=== PATIENT | female | born 1975 | race Caucasian/White ===

== ENCOUNTER → 2017-08-10 | Outpatient (CLI) | payer BC ==
[~2017-08-10] MED LIST: ATEN50TA; LISI-593; PRD5T PO; RNT150T PO; SIMV40TA2; SITA50TA; ZOLP10TA
--- NOTE | 2017-08-10 09:10 | Diagnostic Imaging Report ---
Bilateral screening mammogram 2D views with tomosynthesis The current study was also evaluated with a Computer Aided Detection (CAD) system. INDICATION: Screening. No current complaints stated on the questionnaire. COMPARISON: 03/28/2016. FINDINGS: The breasts are composed of scattered fibroglandular densities. There are elongated asymmetries seen in the upper aspect of the right breast which appear to project on the CC projection in the lateral and central aspects. These are persistent on the tomographic evaluation but could be related to parenchyma with no definitive underlying mass. The left breast demonstrates no mass, architectural distortion, or suspicious calcification. IMPRESSION: Focal compression views and ultrasound evaluation for upper right breast focal asymmetries is recommended. ACR BI-RADS Category 0: Incomplete. (Needs additional imaging evaluation). Result letter will be mailed to the patient. Note: At least 10% of breast cancer is not imaged by mammography. Dictated by: Dictated on workstation # [id number]
== END ==
LOC: RAD 07:20
PROVIDERS: ATTEND Family Medicine
DX: Z12.31 Encounter for screening mammogram for malignant neoplasm of breast (principal); N64.89 Other specified disorders of breast
CPT/HCPCS: 77067

== ENCOUNTER → 2017-08-23 | Outpatient (CLI) | payer BC ==
--- NOTE | 2017-08-23 08:19 | Diagnostic Imaging Report ---
Right breast diagnostic mammogram with tomography. CAD is utilized. The current study was also evaluated with a Computer Aided Detection (CAD) system. COMPARISON: 08/10/17. INDICATION: Asymmetry seen on screening exam on the cc projection centrally and laterally and along the upper aspect of the MLO view. FINDINGS: Focal compression views at the site of asymmetries are performed with no definite underlying lesion seen. IMPRESSION: Findings are in favor of summation artifact of parenchyma with no definite underlying mass. Ultrasound evaluation pending. BI-RADS 0. ACR BI-RADS Category 0: Incomplete. (Needs additional imaging evaluation). Result letter will be mailed to the patient. Note: At least 10% of breast cancer is not imaged by mammography. Dictated by: Dictated on workstation # [id number]
--- NOTE | 2017-08-23 08:55 | Diagnostic Imaging Report ---
Right breast ultrasound. INDICATION: Right breast asymmetry. FINDINGS: Four quadrants and retroareolar region of the right breast is scanned with no underlying abnormality seen. IMPRESSION: Negative study. The mammographic asymmetries are probably summation effect of parenchyma. Annual screening mammogram is recommended. ACR BI-RADS Category 1: Negative. Result letter will be mailed to the patient. Note: At least 10% of breast cancer is not imaged by mammography. Dictated by: Dictated on workstation # [id number]
== END ==
LOC: RAD 07:34
PROVIDERS: ATTEND Family Medicine
DX: N64.89 Other specified disorders of breast (principal)
CPT/HCPCS: 76641

== ENCOUNTER → 2018-03-09 | Outpatient (CLI) | payer BC ==
--- NOTE | 2018-03-09 14:37 | Diagnostic Imaging Report ---
EXAMINATION: Magnetic resonance imaging of the right knee without intravenous contrast DATE: 03/09/2018. COMPARISON: None. INDICATION: A 43-year-old female, right knee injury in the fall of 2017 with persistent right knee pain. TECHNIQUE: Multiplanar, multisequence non contrast enhanced MR imaging was accomplished. FINDINGS: MENISCI: There is increased signal in the posterior horn of the medial meniscus which does not contact an articular surface and does not meet strict MRI criteria for tear. There is no parameniscal cyst. The lateral meniscus is intact. LIGAMENTS AND TENDONS: The anterior and posterior cruciate ligaments are intact. The medial collateral ligament is intact. The iliotibial band, mid third lateral capsular ligament, fibular collateral ligament, biceps femoris tendon and conjoined tendon are intact. The quadriceps tendon and patella ligament are intact. JOINT: The medial patellar facet. There is approximately 25% thinning of the cartilage of the medial patellar facet. There are fissures of the median patellar ridge and lateral patellar facet. There is very minimal degenerative related underlying subchondral edema. The medial and lateral compartment cartilage is grossly intact. There is no identified knee joint effusion, prominent synovitis, or intra-articular body. BONE: The additional bone marrow signal is unremarkable. Specifically, negative for fracture, osteomyelitis, osteonecrosis, or marrow replacing process. BURSAE AND SOFT TISSUES: There is no Lai's cyst. There is a ganglion cyst near the posterior joint capsule measuring 6 x 8 x 8 mm in size. IMPRESSION: 1. Signal in the posterior horn of the medial meniscus not meeting strict MRI criteria for tear. 2. Intact lateral meniscus. 3. Intact anterior and posterior crucial ligaments. Additional ligaments and tendons are intact. 4. Moderate patellofemoral compartment osteoarthritis. No knee joint effusion, prominent synovitis, or intra-articular body. 5. No acute fracture, bone contusion, or evidence of osteonecrosis. Dictated by: Dictated on workstation # [id number]
== END ==
LOC: RAD 12:52
PROVIDERS: ATTEND Orthopaedic Surgery
DX: M17.11 Unilateral primary osteoarthritis, right knee (principal)
CPT/HCPCS: 73721

== ENCOUNTER → 2020-11-11 | Outpatient (CLI) | payer BC | LOC: LABNPT 05:16 | PROVIDERS: ATTEND Podiatrist | DX: Z20.822 Contact with and (suspected) exposure to COVID-19 (principal) | CPT/HCPCS: 87635 ==

== ENCOUNTER 2021-07-24 14:23 | Emergency (ER) | payer BC ==
[~2021-07-24] VITALS: Ht 157 cm; Wt 95.4 kg
--- NOTE | 2021-07-24 14:55 | ED Lower Extremity ---
General Chief Complaint: Lower Extremity Stated Complaint: R ANKLE POPPED/SWELLING/PAIN Nursing Triage Note: AMB TO ROOM WITH STEP LITE BOOT IN PLACE ON R FOOT. REPORTS HAS SURG NOV 13 ON ANKLE. TODAY WAS AT [place] [facility] AND [place] NEXT TO [place] [facility] WAS CUTTING A TREE DOWN THOUGHT IT WAS GOING TO HIT HER SO SHE RAN. FELT POP IN ANKLE WITH PAIN. NOW AREA IN ANKLE BRUSING WITH SWELLING. Source: patient Exam Limitations: no limitations History of Present Illness Date Seen by Provider: Jul 24, 2021 Time Seen by Provider: 14:41 Initial Comments Patient is a 46-year-old female who presents to the emergency department today with a chief complaint of right ankle pain and swelling. Patient states that she was running, misstepped, tripped and fell. She heard a pop. Was able to initially bear weight for a few steps but then states that the ankle became very painful and swollen immediately. She subsequently developed some bruising and increased swelling and discomfort. Has taken some ibuprofen prior to arrival. Patient relates a history of having had Achilles tendon surgery by Dr. Meza at [facility] back in November 2020. She had a walking boot postop and put that on this afternoon after her fall today. Denies any complaints of injury to her right knee hip. Did not injure herself otherwise. No recent illnesses. Complains of a little anxiety. All other review of systems reviewed and negative except as stated. Onset: this afternoon Severity: moderate Pain/Injury Location: right ankle, right heel Method of Injury: fell Modifying Factors: Worse With Movement Allergies and Home Medications Allergies Coded Allergies: No Known Drug Allergies (Unverified , 07/15/11) Patient Home Medication List Home Medication List Reviewed: Yes Atenolol (Tenormin 50 Mg) 50 Mg Tablet, (Reported) Entered as Reported by: ROCÍO HASKINS on 07/15/112 Lisinopril/Hydrochlorothiazide (Zestoretic 20-25 Mg Tablet) 1 Each Tablet, (Reported) Entered as Reported by: ROCÍO HASKINS on 07/15/11 0003 Prednisone (Prednisone) 5 Mg Tab, 5 MG PO UD Prescribed by: MARIO ALBERTO GUPTA on 07/15/11235 Ranitidine Hcl (Zantac 150 Mg) 150 Mg Tablet, 1 TAB PO BID Prescribed by: MARIO ALBERTO GUPTA on 07/15/11 023 Simvastatin (Zocor) 40 Mg Tablet, (Reported) Entered as Reported by: ROCÍO HASKINS on 07/15/11 0003 Sitagliptin Phosphate (Januvia) 50 Mg Tablet, (Reported) Entered as Reported by: ROCÍO HASKINS on 07/15/112 Zolpidem Tartrate (Ambien Gwyn) 10 Mg Tablet, (Reported) Entered as Reported by: ROCÍO HASKINS on 07/15/11 0003 Review of Systems Constitutional: see HPI EENTM: no symptoms reported Respiratory: no symptoms reported Cardiovascular: no symptoms reported Gastrointestinal: no symptoms reported Genitourinary: no symptoms reported Musculoskeletal: joint pain (Right ankle and heel) Skin: other (Swelling and bruising right ankle and heel) Psychiatric/Neurological: Anxiety All Other Systems Reviewed Negative Unless Noted: Yes Physical Exam Vital Signs Vital Signs - First Documented 07/24/21 14:34 Pulse 113 Resp 18 B/P (MAP) 149/83 (105) Pulse Ox 96 O2 Delivery Room Air Capillary Refill : Less Than 3 Seconds Height, Weight, BMI Height: '" Weight: lbs. oz. kg; 38.00 BMI Method: General Appearance: WD/WN, no apparent distress Cardiovascular: regular rate, rhythm, tachycardia Respiratory: lungs clear, normal breath sounds, no respiratory distress, no accessory muscle use Hips: right hip normal range of motion Legs: bilateral leg non-tender, bilateral leg normal inspection, bilateral leg normal range of motion Knees: right knee normal inspection, right knee normal range of motion Ankles: right ankle limited range of motion, right ankle pain, right ankle soft tissue tenderness, right ankle swelling, right ankle other (Posterior ecchymosis, patient has NO plantar flexion with squeeing the right calf. Quite a bit of swelling and inflammation and ecchymoses around the heel/achilles) Neurologic/Psychiatric: alert, normal mood/affect, oriented x 3 Skin: warm/dry, ecchymosis Progress/Results/Core Measures Results/Orders My Orders Orders - JAGRUTI MERCADO MD Ankle, Right, 3 Views (07/24/21 14:50) Vital Signs/I&O 07/24/21 14:34 Pulse 113 Resp 18 B/P (MAP) 149/83 (105) Pulse Ox 96 O2 Delivery Room Air Blood Pressure Mean: 105 Progress Progress Note : Time: 16:41 Progress Note Patient's films reviewed by me and the radiologist. No bony abnormalities visualized on the x-rays. Patient does have findings consistent with possible Achilles tendon rupture however it is impossible for me to know if these physical exam findings are her postop normal from November when Dr. Snyder did her surgery. We are going to err on the side of caution keep her in her boot, crutch walking with anti-inflammatories ice, and compression. She will follow up in the office on Monday morning. Return precautions given. Patient is comfortable with plan of care. Will be sent home with a disc of her x-rays. All questions were sought and answered. Patient is stable for discharge Diagnostic Imaging Diagonstic Imaging: Xray Comments [facility], [place] NAME: ASHLYN HERRING [facility] REC#: [id number] PT STATUS: REG ER : 1975 PHYSICIAN: JAGRUTI MERCADO MD ADMIT DATE: 07/24/21/ER Draft Date of Exam:07/24/21 ANKLE, RIGHT, 3 VIEWS INDICATION: Injury, ankle pain. EXAMINATION: Right ankle at 3:30 p.m. Three views were obtained. COMPARISON: There is no prior study available for comparison. FINDINGS: There is no fracture, dislocation or acute bony abnormality evident. The ankle mortise is not widened and the talar dome is smooth. There is generalized soft tissue edema about the ankle joint. IMPRESSION: There is no evidence for an acute bony abnormality. Dictated on workstation # [id number] Dict: 07/24/21 1548 Trans: 07/24/21 1600 [facility] [id number] Interpreted by: CHANNING SIBLEY MD Electronically signed by: Departure Impression Primary Impression: Injury of right Achilles tendon Qualified Codes: S86.001A - Unspecified injury of right Achilles tendon, initial encounter Disposition: HOME, SELF-CARE Condition: Stable Departure-Patient Inst. Decision time for Depature: 16:35 Referrals: KENJI SNYDER DPM, JACQUELINE S DO (PCP/Family) Primary Care Physician Patient Instructions: Achilles Tendon Rupture Add. Discharge Instructions: Continue to elevate, ice and wrap your right ankle/heel. Ibuprofen, 800 mg, every 8 hours with food as needed for pain. Continue to wear your boot and ambulate with crutches until you are able to follow-up with Dr. Snyder. Come back to the emergency room for any other acute emergent or concerning symptoms. JAGRUTI MERCADO MD Jul 24, 2021 14:55
--- NOTE | 2021-07-24 16:02 | Diagnostic Imaging Report ---
INDICATION: Injury, ankle pain. EXAMINATION: Right ankle at 3:30 p.m. Three views were obtained. COMPARISON: There is no prior study available for comparison. FINDINGS: There is no fracture, dislocation or acute bony abnormality evident. The ankle mortise is not widened and the talar dome is smooth. There is generalized soft tissue edema about the ankle joint. IMPRESSION: There is no evidence for an acute bony abnormality. Dictated by: Dictated on workstation # [id number]
[2021-07-24 17:15] VITALS: BP 149/83
== END 2021-07-24 17:15 | disposition home or self-care (01) ==
LOC: EDUNIT# 14:23 → ER 14:27
DX: S90.01XA Contusion of right ankle, initial encounter (principal); S86.001A Unspecified injury of right Achilles tendon, initial encounter; Z79.52 Long term (current) use of systemic steroids; W01.0XXA Fall on same level from slipping, tripping and stumbling without subsequent striking against object, initial encounter
CPT/HCPCS: 73610; 99281

== ENCOUNTER → 2021-07-28 | Outpatient (CLI) | payer BC | LOC: LABNPT 06:32 | PROVIDERS: ATTEND Podiatrist | DX: Z01.812 Encounter for preprocedural laboratory examination (principal); Z20.822 Contact with and (suspected) exposure to COVID-19 | CPT/HCPCS: 87635 ==

== ENCOUNTER → 2021-11-22 | Outpatient (CLI) | payer BC ==
--- NOTE | 2021-11-22 11:33 | Diagnostic Imaging Report ---
INDICATION: Routine screening. Comparison is made with prior mammogram 08/10/2017 and 03/25/2016. 2-D and 3-D bilateral screening mammography was performed with CAD. Both breasts are heterogeneously dense, limiting the sensitivity of mammography. The parenchymal pattern is stable. No mass or malignant appearing microcalcifications are seen. Axillae are unremarkable. IMPRESSION: No mammographic features suspicious for malignancy are identified. BI-RADS Category 1 ACR BI-RADS Category 1: Negative. Result letter will be mailed to the patient. Note: At least 10% of breast cancer is not imaged by mammography. Dictated by: Dictated on workstation # [id number]
== END ==
LOC: RAD 07:20
PROVIDERS: ATTEND Physician Assistant
DX: Z12.31 Encounter for screening mammogram for malignant neoplasm of breast (principal)
CPT/HCPCS: 77063; 77067

== ENCOUNTER → 2023-05-02 | Outpatient (CLI) | payer BC ==
--- NOTE | 2023-05-02 15:21 | Diagnostic Imaging Report ---
INDICATION: Routine screening. COMPARISON: 11/22/2021 and 08/10/2017. TECHNIQUE: 2D and 3D bilateral screening mammography was performed with CAD. FINDINGS: Both breasts are heterogeneously dense, limiting the sensitivity of mammography. The parenchymal pattern is stable. No mass or malignant-appearing microcalcifications are seen. The axillae are unremarkable. IMPRESSION: No mammographic features suspicious for malignancy are identified. ACR BI-RADS Category 1: Negative. Result letter will be mailed to the patient. Note: At least 10% of breast cancer is not imaged by mammography. Dictated by: Dictated on workstation # [id number]
== END ==
LOC: RAD 07:35
PROVIDERS: ATTEND Family Medicine
DX: Z12.31 Encounter for screening mammogram for malignant neoplasm of breast (principal)
CPT/HCPCS: 77063; 77067